=== PATIENT | female | born 1980 | race Caucasian/White ===

== ENCOUNTER 2020-03-17 11:09 | Emergency (ER) | payer BC, MEDICAID, SELFPAY ==
[2020-03-17 11:20] VITALS: BP 143/87; PULSE 102; RESP 16; TEMP 36.8; O2SAT 99
--- NOTE | 2020-03-17 12:02 | ED.GENADULT ---
HPI - General Adult General Chief complaint: Upper Respiratory Infection Stated complaint: cough and sore throat Time Seen by Provider: 03/17/20 11:16 History of Present Illness HPI narrative: Patient is a 40-year-old female who presents ER with concerns for Covid. Reports over the last 3 to 4 days she has had sinus congestion with sore throat and productive cough of mucus. No fevers or chills or sweats. No exertional dyspnea. Woke up this morning losing her voice. She has no inability to swallow. Reports a coworker tested positive yesterday for Covid and had started showing symptoms about 5 days ago. Related Data Allergies Allergy/AdvReac Type Severity Reaction Status Date / Time amoxicillin Allergy Unknown Verified 10/23/11 13:48 Penicillins Allergy Unknown Verified 10/23/11 13:48 adhesive tape AdvReac Intermediate Rash Verified 11/14/17 09:44 cleaning chemicals Allergy Intermediate Uncoded 12/15/12 10:53 Review of Systems Review of Systems: All systems reviewed & are unremarkable except as noted in HPI and below Constitutional: Constitutional: Denies chills, Denies fever(s) and Denies weakness ENT: Denies nasal congestion and Denies sore throat Cardiovascular: Cardiovascular: Denies chest pain, Denies rapid heart rate and Denies radiating jaw, neck or arm pain Respiratory: Respiratory: Reports cough, Denies dyspnea and Denies wheezing Gastrointestinal: Gastrointestinal: Denies nausea and Denies vomiting PMFSH Past Medical History Medical History (Updated 03/17/20 @ 12:08 by Ranjit Mandel MD) Thyroid cancer Surgical History Surgical History (Updated 03/17/20 @ 12:05 by Ranjit Mandel MD) H/O thyroidectomy History of section Family History Family History (Updated 09/16/15 @ 23:19 by DOCTOR UNKNOWN) Father Hypertension Family history of malignant neoplasm Family history of coronary artery disease Acute myocardial infarction Sibling Hypertension Mother Family history of diabetes mellitus in first degree relative Family history of coronary artery disease Family history of thyroid disease Hypertension Family history of cardiac disorder Social History Social History Smoking status: Never smoker Alcohol intake: never Exam Narrative: Exam Narrative: GENERAL: Well-appearing, well-nourished, and in no acute distress. HEAD: Normocephalic, atraumatic. ENT: Mucous membranes moist. Mild erythema to the posterior oropharynx without tonsillar hypertrophy or exudate. Uvula midline and nonedematous. NECK: Supple. CHEST: Clear to auscultation. No respiratory distress. HEART: Regular rate and rhythm. Normal peripheral pulses. NEURO: Alert and oriented x3. PSYCH: Normal mood and affect. Course Course Emergency Course: Discussed need for self-isolation at home. Patient verbalized understanding. Covid test pending. Vital Signs Vital signs: Vital Signs Temperature 98.3 F 03/17/20 11:20 Pulse Rate 102 H 03/17/20 11:20 Respiratory Rate 16 03/17/20 11:20 Blood Pressure 143/87 H 03/17/20 11:20 Pulse Oximetry 99 03/17/20 11:20 Temperature 98.3 F 03/17/20 11:20 Pulse Rate 102 H 03/17/20 11:20 Respiratory Rate 16 03/17/20 11:20 Blood Pressure 143/87 H 03/17/20 11:20 Pulse Oximetry 99 03/17/20 11:20 Medical Decision Making Vital Signs Vital Signs: Vital Signs Temperature 98.3 F 03/17/20 11:20 Pulse Rate 102 H 03/17/20 11:20 Respiratory Rate 16 03/17/20 11:20 Blood Pressure 143/87 H 03/17/20 11:20 Pulse Oximetry 99 03/17/20 11:20 Temperature 98.3 F 03/17/20 11:20 Pulse Rate 102 H 03/17/20 11:20 Respiratory Rate 16 03/17/20 11:20 Blood Pressure 143/87 H 03/17/20 11:20 Pulse Oximetry 99 03/17/20 11:20 Lab Data Labs: Strep Screen Presumptive Negative *(Reference Range: Negative)* Discharge Plan Discharge Clinical Impression: Uppe
[2020-03-17 21:41] LABS: SARS-CoV-2 RNA PCR Negative
== END 2020-03-17 12:31 ==
PROVIDERS: Emergency Provider Emergency Medicine; PCP Family Medicine
DX: J06.9 Acute upper respiratory infection, unspecified (principal); Z20.822 Contact with and (suspected) exposure to COVID-19; E89.0 Postprocedural hypothyroidism; Z85.850 Personal history of malignant neoplasm of thyroid
CPT/HCPCS: 87081; 87880; 99283; C9803; U0003; U0005

== ENCOUNTER 2020-11-12 01:00 | Emergency (ER) | payer OTHER, MEDICAID, SELFPAY ==
[2020-11-12] VITALS (18 sets, daily range): BP systolic 134–180; BP diastolic 70–98; PULSE 84–112; RESP 12–24; TEMP 36.6; O2SAT 97–100
[2020-11-12] MEDS: EPINEPHrine HCL INJ 1 MG/ML AMPUL 0.3 MG IM (02:26)
[2020-11-12] MEDS: methylPREDNISolone SOD SUCC 125 MG VIAL IV PUSH (02:27)
[2020-11-12] MEDS: FAMOTIDINE 20 MG/2 ML VIAL IV PUSH (02:28)
--- NOTE | 2020-11-12 05:04 | ED.ALLEREA ---
HPI - Allergic Reaction General Chief complaint: Allergic Reaction Stated complaint: allergic reaction Time Seen by Provider: 11/12/20 01:22 History of Present Illness HPI narrative: Patient is a 40-year-old female who presents ER with allergic reaction. This evening after having some smoked. Patient began having itching and welts developing across her body. She developed some swelling to her lower lip. No difficulty breathing or swallowing. She is tried Benadryl x2 without improvement of symptoms. No known food allergies. She does report that she has been on Bactrim recently for possible sinus infection. Today is day 7. Has not had previous reaction to Bactrim The symptoms did start prior to taking her evening dose of Bactrim. Related Data Home Medications Medication Instructions Recorded Confirmed albuterol sulfate [ProAir HFA] INHALATION 11/12/20 11/12/20 levothyroxine 11/12/20 Allergies Allergy/AdvReac Type Severity Reaction Status Date / Time amoxicillin Allergy Unknown Unknown Verified 11/12/20 01:19 Penicillins Allergy Unknown Unknown Verified 11/12/20 01:19 adhesive tape AdvReac Intermediate Rash Verified 11/12/20 01:19 cleaning chemicals Allergy Intermediate Unknown Uncoded 11/12/20 01:19 Review of Systems Review of Systems: All systems reviewed & are unremarkable except as noted in HPI and below Constitutional: Constitutional: Denies chills, Denies fever(s) and Denies weakness ENT: Denies nasal congestion and Denies sore throat Comments: Lower lip swelling Respiratory: Respiratory: Denies cough, Denies dyspnea and Denies wheezing Gastrointestinal: Gastrointestinal: Denies abdominal pain, Denies nausea and Denies vomiting Integumentary/Breasts: Skin/Breast: Reports pruritus, Reports erythema, Reports rash and Denies skin ulcer PMFSH Past Medical History Medical History (Updated 11/12/20 @ 05:10 by Ranjit Mandel MD) Thyroid cancer Surgical History Surgical History (Updated 03/17/20 @ 12:05 by Ranjit Mandel MD) H/O thyroidectomy History of section Family History Family History (Updated 09/16/15 @ 23:19 by DOCTOR UNKNOWN) Father Hypertension Family history of malignant neoplasm Family history of coronary artery disease Acute myocardial infarction Sibling Hypertension Mother Family history of diabetes mellitus in first degree relative Family history of coronary artery disease Family history of thyroid disease Hypertension Family history of cardiac disorder Social History Social History Smoking status: Never smoker Alcohol intake: never Exam Narrative: GENERAL: Well-appearing, well-nourished, and in no acute distress. HEAD: Normocephalic, atraumatic. EYES: PERRL and EOMI. ENT: Mucous membranes moist. Lower lip swelling, no edema of the uvula versus lingular space. Tolerating oral secretions. NECK: Supple. CHEST: Clear to auscultation. No respiratory distress. HEART: Regular rate and rhythm. Normal peripheral pulses. ABDOMEN: Soft, nontender, nondistended. EXTREMITIES: Normal range of motion. No edema. SKIN: Warm, dry. Urticarial reaction with redness and swelling to the right shoulder, bilateral forearms and thumbs, and the hips bilaterally. NEURO: Alert and oriented x3. Course Course Emergency Course: Resolved with epinephrine, Pepcid, and Solu-Medrol. Recommend discontinuing Bactrim and also avoid smoke gated. Suspect symptoms are most likely caused by Bactrim. Recommend follow-up with PCP. Vital Signs Vital signs: Vital Signs Temperature 98 F 11/12/20 01:09 Pulse Rate 97 11/12/20 01:09 Respiratory Rate 20 11/12/20 01:09 Blood Pressure 174/98 H 11/12/20 01:09 Pulse Oximetry 100 11/12/20 01:09 Temperature 97.9 F 11/12/20 04:03 Pulse Rate 89 11/12/20 04:03 Respiratory Rate 15 11/12/20 04:03 Blood Pressure 134/70 11/12/20 04:03 Pulse Oximetry 98 11/12/20 04:03 Critical Care Time C
== END 2020-11-12 05:27 | disposition home or self-care (01) ==
PROVIDERS: Emergency Provider Emergency Medicine; PCP Family Medicine
DX: T78.40XA Allergy, unspecified, initial encounter (principal); Z85.850 Personal history of malignant neoplasm of thyroid; E89.0 Postprocedural hypothyroidism
CPT/HCPCS: 96372; 96374; 96375; 99284; J0171; J2930

== ENCOUNTER → 2021-03-08 08:43 | Outpatient (CLI) | payer OTHER, MEDICAID, SELFPAY ==
[2021-03-08 21:10] LABS: SARS-CoV-2 RNA PCR Positive
== END ==
PROVIDERS: PCP Physician Assistant; Visit Provider Physician Assistant
DX: U07.1 COVID-19 (principal)
CPT/HCPCS: C9803; U0003; U0005

== ENCOUNTER 2021-11-15 15:42 | Outpatient (CLI) | payer OTHER, SELFPAY ==
[2021-11-15 16:17] LABS: Anion Gap 15 mmol/L (8-16); Blood Urea Nitrogen 12 mg/dL (7-17); Calcium 8.6 mg/dL (8.4-10.2); Carbon Dioxide 28 mmol/L (22-30); Chloride 96 mmol/L (98-107); Estimated Glomerular Filt Rate > 60; Glucose 97 mg/dL (65-110); Potassium 3.2 mmol/L (3.4-5.0); Sodium 139 mmol/L (137-145)
== END 2021-11-15 15:43 | disposition home or self-care (01) ==
LOC: ANHSURGERY 15:47
PROVIDERS: Anesthesiology; PCP Physician Assistant; Visit Provider Obstetrics & Gynecology
DX: Z01.818 Encounter for other preprocedural examination (principal); Z79.899 Other long term (current) drug therapy
CPT/HCPCS: 36415; 80048

== ENCOUNTER 2021-11-22 02:11 | Day surgery (SDC) | payer OTHER, SELFPAY ==
[2021-11-14 15:57] VITALS: BMI 41.3
--- NOTE | 2021-11-14 16:01 | SUR.PREOP ---
Report to the Outpatient Waiting Room, entrance under the green pavilion located off [facility], at time 0800 on date 11/22/21 . OR Time: _1000 . Time changes happen often and if your time is changed the preop area will call you the afternoon before. - You and your visitor will be asked to self-screen and do not enter if you have any COVID symptoms. - Only one visitor and NO children visitors are allowed at this time. - The patient visitor is requested to leave or wait in car when not with patient due to restrictions. - A mask is required within the hospital. Patients may have clear liquids (water, carbonated beverages, clear teas, apple juice) until 3 hours prior to surgery with a maximum of 20 ounces. - No food from midnight until time of surgery - Infants may have breast milk until 4 hours before surgery, formula 6 hours prior to surgery. - Children will be allowed to drink immediately following surgery. If applicable, please bring a bottle or sippy cup to assist with drinking. Juice, water, soda, and popsicles are readily available. For infants on formula, please bring formula the day of surgery. Pacifiers are allowed. Take the following medications with a SIP of water the morning of surgery: _levothyroxine Medications to discontinue per physician n/a Date to take last dose_n/a Please no make-up, nail welsh, hairspray, perfume, deodorant, or body powder the day of surgery. No jewelry (including any body piercings) or valuables the day of surgery, leave them at home. Please take a shower or bath the night before, or the morning of, surgery with an antibacterial soap. Wear comfortable, loose fitting clothing. Children are encouraged to wear pajamas. - Jewelry must be removed prior to entering the operating room. Rings and piercings that are not removed may be cut off. - The hospital will not accept responsibility for valuables. - Please leave all valuables, including medications, at home the day of surgery. If you are going home after surgery, a licensed non cdl driver must drive you home. - NO public transportation without another adult. - We recommend that an adult stay with you for 24 hours following discharge. - We also recommend that you do not drive, make important decision, drink alcoholic beverages, or take any drugs that were not prescribed by your health care provider for at least 24 hours after your discharge time. For Pediatric surgeries, we recommend two adults accompany the child home (only one inside the building at this time). Follow any additional instructions given to you from your surgeon. If you or anyone in your household have experienced Covid symptoms in the past week, please notify your surgeon or the nurse liaison at the phone number below for possible testing. Telephone instructions given to yuliana boyle and asked if any additional questions and then verbalized understanding. Patient advised to call surgeon office or pre surgery nurse liaison [phone] if any additional questions.
--- NOTE | 2021-11-21 13:45 | WPDANESEPPF ---
Anes - Initial Pre Proc Eval Procedure: Operation Date: 11/22/21 10:00 Proposed Procedures p Hysteroscopy, Karyn Endometrial Ablation - Gilles Aleman MD <Lalo Fermin MD - Last Filed: 12/07/21 12:09> Date/Time: 11/21/21 13:45 <Lalo Fermin MD - Last Filed: 12/07/21 12:09> Surgeon: Gilles Aleman MD <Lalo Fermin MD - Last Filed: 12/07/21 12:09> Pre Op Diagnosis: menorrhagia <Lalo Fermin MD - Last Filed: 12/07/21 12:09> Patient Data Age: 41 Gender: F Height: 1.74 m Weight: 125 kg <Lalo Fermin MD - Last Filed: 12/07/21 12:09> Allergies Allergy/AdvReac Type Severity Reaction Status Date / Time amoxicillin Allergy Intermediate Hives Verified 11/22/21 08:11 Penicillins Allergy Intermediate Hives Verified 11/22/21 08:11 sulfamethoxazole Allergy Intermediate Hives Verified 11/22/21 08:11 [From Bactrim] trimethoprim [From Bactrim] Allergy Intermediate Hives Verified 11/22/21 08:11 adhesive tape AdvReac Intermediate Rash Verified 11/22/21 08:11 cleaning chemicals Allergy Intermediate Rash Uncoded 11/22/21 08:11 <Lalo Fermin MD - Last Filed: 12/07/21 12:09> Home Medications Medication Instructions Recorded Confirmed Type albuterol sulfate 90 mcg/actuation 1 puff inhalation PRN 11/12/20 11/22/21 History aerosol inhaler (ProAir HFA) levothyroxine 112 mcg tablet 224 mcg PO DAILY 11/12/20 11/22/21 History hydrochlorothiazide 25 mg tablet 25 mg PO DAILY 11/14/21 11/22/21 History progesterone micronized 200 mg 200 mg PO HS 11/14/21 11/22/21 History capsule <Lalo Fermin MD - Last Filed: 12/07/21 12:09> Patient hx anesthesia problems: none <Wisam Johnson MD - Last Filed: 11/22/21 08:35> Family hx anesthesia problems: none <Wisam Johnson MD - Last Filed: 11/22/21 08:35> Results Review: All pre-operative results and documents have been reviewed as part of the pre-operative evaluation. <Lalo Fermin MD - Last Filed: 12/07/21 12:09> [facility] Past Medical History Medical History: Medical History (Updated 11/22/21 @ 09:22 by Gilles Aleman MD) Asthma Hypertension Hypothyroid Thyroid cancer <Lalo Fermin MD - Last Filed: 12/07/21 12:09> Surgical History Surgical History: Surgical History (Updated 03/17/20 @ 12:05 by Ranjit Mandel MD) H/O thyroidectomy History of section <Lalo Fermin MD - Last Filed: 12/07/21 12:09> Family History Family History: Family History (Updated 09/16/15 @ 23:19 by DOCTOR UNKNOWN) Father Hypertension Family history of malignant neoplasm Family history of coronary artery disease Acute myocardial infarction Sibling Hypertension Mother Family history of diabetes mellitus in first degree relative Family history of coronary artery disease Family history of thyroid disease Hypertension Family history of cardiac disorder <Lalo Fermin MD - Last Filed: 12/07/21 12:09> Social History Social History: Social History Smoking status: Never smoker Tobacco type: cigarettes Additional smoking assessment comments: social smoker Alcohol intake: never Drinks per week: 1 Living arrangements: with family Spiritual care concerns: No <Lalo Fermin MD - Last Filed: 12/07/21 12:09> Anes - Eval Final PreProcedure Day of Procedure 11/21/21 13:45 <Lalo Fermin MD - Last Filed: 12/07/21 12:09> Patient weight: morbidly obese <Wisam Johnson MD - Last Filed: 11/22/21 08:35> Heart: regular rate and rhythm <Wisam Johnson MD - Last Filed: 11/22/21 08:35> Lungs: clear to auscultation and normal air movement <Wisam Johnosn MD - Last Filed: 11/22/21 08:35> Airway: Mallampati scale class II <Wisam Johnson MD - Last Filed: 11/22/21 08:35> Neurological: alert and oriented <Wisam Johnson MD - Last Filed: 11/22/21 08:35> Last oral intake: >
[2021-11-22 07:40] VITALS: BP 141/74; PULSE 84; RESP 18; TEMP 36.6; O2SAT 100
[2021-11-22] MEDS: LACTATED RINGERS 1,000 ML 30 ML IV CONT ×2 (08:27→10:37)
[2021-11-22] MEDS: ACETAMINOPHEN 500 MG TABLET 1000 MG PO (08:28)
--- NOTE | 2021-11-22 09:15 | WPDHPUPDATE1 ---
History and Physical Update Update Date/Time: 11/22/21 09:15 History and Physical has been reviewed, including an updated exam of the patient. There are NO changes in the patient's condition. Risks, benefits, and alternatives have been discussed and questions answered. Patient agrees to proceed with procedure.
--- NOTE | 2021-11-22 09:20 | PM.IMHP ---
H&P: HPI History of Present Illness Date/Time: 11/22/21 09:20 Chief Complaint: Menorrhagia Narrative: this patient is a 41-year-old female who presents for menorrhagia treatment. She is to undergo endometrial ablation today. She has severe menorrhagia. She understands that the procedure has risks. She understands that injuries may occur that resulted in hospitalization, more surgery, and severe illness. She understands risk of hemorrhage and infection. Review of Systems Review of Systems: All systems reviewed & are unremarkable except as noted in HPI and below Constitutional: Constitutional: Denies chills, Denies fatigue, Denies fever(s) and Denies weakness Eyes: Eyes: Denies blurry vision, Denies change in vision, Denies loss of peripheral vision, Denies loss of vision, Denies other visual disturbances and Denies eye pain ENT: Denies vertigo, Denies dizziness, Denies hearing loss, Denies mouth pain, Denies nasal obstruction, Denies neck mass and Denies neck pain Cardiovascular: Cardiovascular: Denies chest pain, Denies diaphoresis, Denies syncope, Denies leg edema and Denies dyspnea Respiratory: Respiratory: Denies chest congestion, Denies cough, Denies hemoptysis, Denies dyspnea and Denies wheezing Gastrointestinal: Gastrointestinal: Denies abdominal pain, Denies constipation, Denies diarrhea, Denies nausea and Denies vomiting Genitourinary: Genitourinary: Denies hematuria, Denies change in libido, Denies nocturia, Denies genital lesions, Denies flank pain and Denies urinary urgency Musculoskeletal: Musculoskeletal: Denies abnormal gait, Denies back pain, Denies myalgias, Denies arthralgias, Denies joint swelling, Denies muscle weakness and Denies neck pain Integumentary/Breasts: Skin/Breast: Denies swelling, Denies breast pain, Denies breast mass, Denies dry skin, Denies nipple discharge, Denies unusual bruising and Denies jaundice Neurologic: Denies Neuro-related abnormal movements, Denies Abnormal speech present, Denies abnormal gait, Denies behavioral changes, Denies confusion, Denies vertigo, Denies dizziness, Denies syncope, Denies loss of vision, Denies memory loss, Denies convulsions and Denies weakness Psychiatric: Psychiatric: Denies abnormal sleep pattern, Denies behavioral changes, Denies change in libido, Denies confusion, Denies depression, Denies anhedonia and Denies memory loss Endocrine: Endocrine: Reports no additional endocrine complaints, Denies change in libido and Denies fatigue Hematologic/Lymphatic: Hematologic/Lymphatic: Reports no additional hematologic/lymphatic complaints Allergic/Immunologic: Allergic/Immunologic: Reports no additional allergic/immunologic complaints and Denies wheezing [facility] Past Medical History Medical History (Updated 11/22/21 @ 09:22 by Gilles Aleman MD) Asthma Hypertension Hypothyroid Thyroid cancer Surgical History Surgical History (Updated 03/17/20 @ 12:05 by Ranjit Mandel MD) H/O thyroidectomy History of section Family History Family History (Updated 09/16/15 @ 23:19 by DOCTOR UNKNOWN) Father Hypertension Family history of malignant neoplasm Family history of coronary artery disease Acute myocardial infarction Sibling Hypertension Mother Family history of diabetes mellitus in first degree relative Family history of coronary artery disease Family history of thyroid disease Hypertension Family history of cardiac disorder Social History Social History Smoking status: Never smoker Tobacco type: cigarettes Additional smoking assessment comments: social smoker Alcohol intake: never Drinks per week: 1 Living arrangements: with family Spiritual care concerns: No Meds Home Medications and Allergies Home Medications Medication Instructions Recorded Confirmed Type albuterol sulfate 90 mcg/actuation 1 puff inhalation PRN 11/12/20 11/22/21 History aerosol inhaler (ProAir HFA) levothyroxine 112 mcg
[2021-11-22] MEDS: LIDOCAINE 1% BUFFERED WITH 8.4% SODIUM BICARB 1 ML SYRINGE 10 ML INFILTRATE (10:16)
[2021-11-22 10:37] VITALS: BP 136/71; PULSE 89; RESP 14; O2SAT 100
[2021-11-22 11:05] VITALS: BP 154/82; PULSE 73; RESP 14; O2SAT 100
[2021-11-22] MEDS: oxyCODONE HCL (*CRX) 5 MG TAB IR PO (11:14)
[2021-11-22] MEDS: ONDANSETRON INJ 4 MG/2 ML VIAL IV PUSH (11:23)
[2021-11-22 11:35] VITALS: BP 147/99; PULSE 65; RESP 14
--- NOTE | 2021-11-22 12:00 | SUR.PHASEII ---
DR. SAHNI CALLED TO ASK IF PATIENT SHOULD CONTINUE PROGESTERONE. HE SAID FOR HER TO DISCONTINUE IT; MESSAGE RELAYED TO PATIENT.
--- NOTE | 2021-11-26 11:52 | W.PM.PROC2 ---
Procedure Note - Detailed Date of Procedure 11/26/21 Pre-op Diagnosis menorrhagia Post-op Diagnosis Same Procedure Performed endometrial ablation, hysteroscopy Surgeon Gilles Aleman MD Anesthesia MAC Indications menorrhagia Findings normal vulva, vagina and cervix, normal endometrium Description of Procedure The patient was taken to the operating room. She was prepped and draped in the dorsal lithotomy position after induction of mac anesthesia. A speculum was placed in the vagina. Cervix grasped with a tenaculum. The cervix was dilated to about 1 cm. The hysteroscope was inserted. The above findings were noted. Endometrial curettage was performed with a medium-size curette. All surfaces of the endometrium were affected by the curettage. The specimens were collected and sent to pathology. Measurements were taken of the uterus and cervix. The uterine length was then entered into the hand piece of the Karyn device. The device was inserted into the intrauterine cavity. The array of the device was expanded. The balloon cuff was inflated. A good seal was achieved. The energy and safety cycles were initiated and completed. The array was collapsed and the instrument was withdrawn after deflating the balloon cuff. Hysteroscope was reinserted. Above findings were noted. The hysteroscope was removed. The patient tolerated the procedure well. The speculum and tenaculum were removed. She was taken to recovery in stable condition. Sponge lap and needle counts were correct x2. Estimated Blood Loss 15 Pathology Yes Complications No immediate complications Condition Stable Disposition Same day
--- NOTE | 2021-12-03 20:25 | W.PM.PROC2 ---
Procedure Note - Detailed Date of Procedure 12/03/21 Pre-op Diagnosis menorrhagia Post-op Diagnosis Same Procedure Performed endometrial ablation with hysteroscopy d&c Surgeon Gilles Aleman MD Anesthesia MAC Indications Severe menorrhagia Findings Normal vulva vagina and cervix. Normal endometrium. Description of Procedure The patient was taken to the operating room. She was prepped and draped in the dorsal lithotomy position after induction of mac anesthesia. A speculum was placed in the vagina. Cervix grasped with a tenaculum. The cervix was dilated to about 1 cm. The hysteroscope was inserted. The above findings were noted. Endometrial curettage was performed with a medium-size curette. All surfaces of the endometrium were affected by the curettage. The specimens were collected and sent to pathology. Measurements were taken of the uterus and cervix. The uterine length was then entered into the hand piece of the Karyn device. The device was inserted into the intrauterine cavity. The array of the device was expanded. The balloon cuff was inflated. A good seal was achieved. The energy and safety cycles were initiated and completed. The array was collapsed and the instrument was withdrawn after deflating the balloon cuff. Hysteroscope was reinserted. Above findings were noted. The hysteroscope was removed. The patient tolerated the procedure well. The speculum and tenaculum were removed. She was taken to recovery in stable condition. Sponge lap and needle counts were correct x2. Estimated Blood Loss 15 Pathology Yes Complications No immediate complications Condition Stable Disposition Same day
== END 2021-11-22 12:15 | disposition home or self-care (01) ==
PROVIDERS: PCP Physician Assistant; Visit Provider Obstetrics & Gynecology
PROC: 0U5B8ZZ Destruction of Endometrium, Via Natural or Artificial Opening Endoscopic (ICD-10-PCS; CPT 58563; principal; 2021-11-22 10:00)
DX: N92.0 Excessive and frequent menstruation with regular cycle (principal); J45.909 Unspecified asthma, uncomplicated; I10 Essential (primary) hypertension; Z85.850 Personal history of malignant neoplasm of thyroid; E89.0 Postprocedural hypothyroidism; Z79.51 Long term (current) use of inhaled steroids; E66.01 Morbid (severe) obesity due to excess calories; Z68.41 Body mass index [BMI] 40.0-44.9, adult
CPT/HCPCS: 58563; 88305; A9270; J1100; J2250; J2405; J2704; J3010; J7030; J7120

== ENCOUNTER 2022-02-21 11:07 | Emergency (ER) | payer OTHER, SELFPAY ==
--- NOTE | ~2022-02-21 | XR_ITS ---
EXAMINATION: XR tibia fibula RT 2V DATE: 02/21/2022 12:32 INDICATION: Right lower leg injury and pain. TECHNIQUE: 2 views of right tibia and fibula were obtained. COMPARISON: Right knee radiographs 06/19/2006 FINDINGS: Bone alignment is normal. No fracture. Joint spaces are well maintained. IMPRESSION: 1. Normal right tibia and fibula. Reviewed, dictated and finalized at location A. [facility]
--- NOTE | ~2022-02-21 | US_ITS ---
EXAMINATION: US venous doppler LE RT DATE: 02/21/2022 12:18 INDICATION: Right lower limb pain and swelling. TECHNIQUE: Grayscale ultrasound images without and with compression and Doppler ultrasound images of the right lower extremity veins were obtained. COMPARISON: None. FINDINGS: The visualized portions of right common femoral vein, profunda (deep) femoral vein, femoral vein, pop liteal vein, peroneal veins, posterior tibial veins, and greater saphenous vein outflow are patent. I n the medial calf, there is an ill-defined 5 cm hypoechoic mass, consistent with hematoma. IMPRESSION: 1. No deep venous thrombosis. 2. Ill-defined 5 cm hypoechoic mass in medial right calf, consistent with inflammation/hematoma. Reviewed, dictated and finalized at location A. [facility] IMPRESSION: 1. No deep venous thrombosis. 2. Ill-defined 5 cm hypoechoic mass in medial right calf, consistent with infla mmation/hematoma.
[2022-02-21 11:08] VITALS: BP 140/90; PULSE 106; RESP 16; TEMP 36.9; O2SAT 98
--- NOTE | 2022-02-21 12:24 | ED.EXTPRO ---
HPI - Extremity Problem General Chief complaint: Extremity Problem,Nontraumatic Stated complaint: DVT? Time Seen by Provider: 02/21/22 11:17 Source: patient Mode of arrival: ambulatory Limitations: no limitations History of Present Illness HPI Narrative: This is a 42-year-old female that presents to the emergency department for right lower extremity edema. Ongoing over the last couple of weeks. Reports she recently injured her lower leg. She was trying to get into her jeep and slipped and hit her stanley on the bar that you step up on to get into the car. Reports bruising and pain to the area. Reports the area started to become swollen which prompted her to be seen. She has family history of blood clots and wanted to be sure she didn't have a DVT. Denies fever, chest pain, shortness of breath, or erythema. Related Data Home Medications Medication Instructions Recorded Confirmed albuterol sulfate 90 mcg/actuation 1 puff inhalation PRN 11/12/20 11/22/21 aerosol inhaler (ProAir HFA) levothyroxine 112 mcg tablet 224 mcg PO DAILY 11/12/20 11/22/21 hydrochlorothiazide 25 mg tablet 25 mg PO DAILY 11/14/21 11/22/21 progesterone micronized 200 mg 200 mg PO HS 11/14/21 11/22/21 capsule Allergies Allergy/AdvReac Type Severity Reaction Status Date / Time amoxicillin Allergy Intermediate Hives Verified 11/22/21 08:11 Penicillins Allergy Intermediate Hives Verified 11/22/21 08:11 sulfamethoxazole Allergy Intermediate Hives Verified 11/22/21 08:11 [From Bactrim] trimethoprim [From Bactrim] Allergy Intermediate Hives Verified 11/22/21 08:11 adhesive tape AdvReac Intermediate Rash Verified 11/22/21 08:11 cleaning chemicals Allergy Intermediate Rash Uncoded 11/22/21 08:11 Review of Systems Review of Systems: CONSTITUTIONAL: Denies fever CARDIOVASCULAR: Reports edema. Denies chest pain RESPIRATORY: Denies dyspnea. SKIN: Denies rash MUSCULOSKELETAL: Reports joint pain, and myalgia. NEUROLOGIC: Denies numbness, or weakness. All systems reviewed & are unremarkable except as noted in HPI and below PMFSH Past Medical History Medical History (Updated 02/21/22 @ 13:00 by Ambreen Gurrola PA-C) Asthma Hypertension Hypothyroid Thyroid cancer Surgical History Surgical History (Updated 03/17/20 @ 12:05 by Ranjit Mandel MD) H/O thyroidectomy History of section Family History Family History (Updated 09/16/15 @ 23:19 by DOCTOR UNKNOWN) Father Hypertension Family history of malignant neoplasm Family history of coronary artery disease Acute myocardial infarction Sibling Hypertension Mother Family history of diabetes mellitus in first degree relative Family history of coronary artery disease Family history of thyroid disease Hypertension Family history of cardiac disorder Social History Social History (Updated 02/21/22 @ 12:25 by SARAH BETH AustinC) Smoking status: Former smoker Tobacco type: cigarettes Additional smoking assessment comments: social smoker Alcohol intake: never Drinks per week: 1 Spiritual care concerns: No Exam Narrative: GENERAL: Well-appearing, well-nourished, and in no acute distress. HEAD: Normocephalic, atraumatic. EYES: EOMI. CHEST: No respiratory distress HEART: Regular rate EXTREMITIES: Normal range of motion. Mild edema about the right calf into the ankle. Bruising noted to the right mid stanley. Normal DP pulse. Normal sensation SKIN: Warm, dry, no rash. NEURO: No focal deficits. Alert and oriented x3. PSYCH: Normal mood and affect Course Course Emergency Course: Patient updated on work-up. Resting comfortably. Agrees with plan of care Vital Signs Vital signs: Vital Signs Temperature 98.4 F 02/21/22 11:08 Pulse Rate 106 H 02/21/22 11:08 Respiratory Rate 16 02/21/22 11:08 Blood Pressure 140/90 02/21/22 11:08 Pulse Oximetry 98 02/21/22 11:08 Temperature 98.4 F 02/21/22 11:08 Pulse Rate 106 H 02/21/22
== END 2022-02-21 13:21 | disposition home or self-care (01) ==
PROVIDERS: Emergency Provider Physician Assistant; PCP Physician Assistant
DX: S80.11XA Contusion of right lower leg, initial encounter (principal); J45.909 Unspecified asthma, uncomplicated; I10 Essential (primary) hypertension; Z85.850 Personal history of malignant neoplasm of thyroid; E89.0 Postprocedural hypothyroidism; Z87.891 Personal history of nicotine dependence; W22.8XXA Striking against or struck by other objects, initial encounter
CPT/HCPCS: 73590; 93971; 99284